=== PATIENT | female | born 1995 | race African-American/Black ===

== ENCOUNTER → 2020-12-10 18:05 | Outpatient (CLI) | payer OTHER, SELFPAY ==
--- NOTE | 2020-12-10 | DI.MRI.S_ITS ---
PROCEDURE: MR WRIST RT WO CON INDICATIONS: RADIAL STYLOID TENOSYNOVITIS (DE QUERVAIN) TECHNIQUE: Noncontrast coronal proton density fast spin echo and T2 fast spin echo with fat saturation; coronal 3-D gradient echo, axial T1 spin echo and T2 fast spin echo with fat saturation, sagittal T1 spin echo through the wrist. COMPARISON: None. FINDINGS: Image quality: Excellent. Bones and cartilage: The carpal bones are normally aligned. Subtle marrow edema involving lateral periphery of radial styloid is seen. No discrete fracture line. No other area of abnormal marrow signal. No evidence for avascular necrosis. Overlying cartilage surfaces appear normal. Carpal ligaments: The scapholunate and lunotriquetral ligaments appear intact. In the absence of intra-articular contrast, the extrinsic carpal ligaments are not well identified. On sagittal images, the pisohamate ligament appears intact. Triangular fibrocartilage complex: The triangular fibrocartilage appears intact. The adjacent meniscal homolog appears normal in the absence of intra-articular contrast. The extensor carpi ulnaris tendon is normal in location and morphology. Tendons and soft tissues: Significant thickening of 1st extensor compartment involving extensor pollicis brevis and abductor pollicis longus tendons at the level of distal radius and radial styloid is seen most pronounced at the level of radial styloid tip with small to moderate amount of fluid distending tendon sheath. The carpal tunnel structures appear normal, including the median nerve. The ulnar nerve appears normal within Guyon's canal. Rest of the extensor tendon compartments demonstrate normal morphology, without pathologic tendon sheath fluid. No soft tissue ganglion cysts. IMPRESSION: 1. Moderate tenosynovitis and intrasubstance partial-thickness tear involving 1st extensor compartment . No full-thickness wrist tendon rupture. 2. Intrinsic and extrinsic wrist ligaments are grossly intact. 3. Triangular fibrocartilage complex is intact. 4. Nonspecific mild edema involving lateral periphery of distal radius and radial styloid. No fracture or dislocation. Dictated by: Gelacio Chaparro M.D. on 12/13/2020 at 8:31 Approved by: Gelacio Chaparro M.D. on 12/13/2020 at 8:37
== END ==
PROVIDERS: Referring Provider Orthopaedic Surgery; Visit Provider Orthopaedic Surgery
DX: M65.4 Radial styloid tenosynovitis [de Quervain] (principal)
CPT/HCPCS: 73221